=== PATIENT | male | born 2000 | race Caucasian/White ===

== ENCOUNTER 2021-03-05 16:00 | Emergency (ER) | payer MEDICAID ==
[2021-03-05] MEDS ORDERED: MOTRIN 600 MG PO ONE (16:43)
--- NOTE | 2021-03-05 16:49 | ERPHSYRPT ---
- History of Present Illness Time Seen by Provider: 03/05/21 16:30 Source: patient Exam Limitations: no limitations Patient Subjective Stated Complaint: toothache last night to both left and right lower jaw areas. Triage Nursing Assessment: Patient presents to ED with cc of toothache to bilateral back teeth to lower jaw yesterday. Pain is resolved at this time. Patient states that 2 weeks ago, he had a runny nose and cough. However, that resolved 2 days ago. Pt ambulated to room, VSS. Skin PWD. Bilateral back teeth to lower jaw appear broken off and brown. Patient has no complaints at this time, just states he wants checked out d/t to this toothache he had yesterday as he has been dealing with it intermittently x 1 year. Pt answers questions appropriately, is calm and cooperative. Physician History: 20 years old presented in the ER with bilateral molar/premolar area rotten teeth broken off causing off-and-on pain with some swelling of gingiva for almost 1 year but lately causing more pain sharp nature moderate intensity at times which gets better with [id number] pain medications. No difficulty swallowing but causes pain with swallowing. Does not have insurance and have not seen a dentist. Timing/Duration: gradual onset, weeks Severity: moderate ENT Location: dental Prearrival Treatment: no prearrival treatment Associated Symptoms: jaw pain, tooth pain Allergies/Adverse Reactions: No Known Drug Allergies Allergy (Unverified 03/05/21 16:35) Hx Tetanus, Diphtheria Vaccination/Date Given: Yes Hx Influenza Vaccination/Date Given: No Hx Pneumococcal Vaccination/Date Given: No Travel Risk - International Travel Have you traveled outside of the country in past 3 weeks: No - Coronavirus Screening Are you exhibiting any of the following symptoms?: No Close contact with a COVID-19 positive Pt in past 14-21 Days: No - Vaccine Status Have you recieved a Covid-19 vaccination: No - Review of Systems Constitutional: No Symptoms Eyes: No Symptoms Ears, Nose, & Throat: Loose Teeth Respiratory: No Symptoms Cardiac: No Symptoms Abdominal/Gastrointestinal: No Symptoms Musculoskeletal: No Symptoms Skin: No Symptoms Immunological/Allergic: No Symptoms - Past Medical History Pertinent Past Medical History: No Neurological History: No Pertinent History ENT History: No Pertinent History Cardiac History: No Pertinent History Respiratory History: No Pertinent History Endocrine Medical History: No Pertinent History Musculoskeletal History: No Pertinent History GI Medical History: No Pertinent History History: No Pertinent History Psycho-Social History: No Pertinent History Male Reproductive Disorders: No Pertinent History - Past Surgical History Past Surgical History: Yes Neuro Surgical History: No Pertinent History Cardiac: No Pertinent History Respiratory: No Pertinent History Gastrointestinal: No Pertinent History Genitourinary: No Pertinent History Musculoskeletal: No Pertinent History Male Surgical History: No Pertinent History - Social History Smoking Status: Never smoker Exposure to second hand smoke: No Drug Use: none Patient Lives Alone: No (lives with stepdad, mom, sister) - Nursing Vital Signs Nursing Vital Signs: Initial Vital Signs Temperature 36.8 F 03/05/21 16:26 Pulse Rate 78 03/05/21 16:26 Respiratory Rate 16 03/05/21 16:26 O2 Sat by Pulse Oximetry 98 03/05/21 16:26 Pain Scale Pain Intensity 0 - Physical Exam General Appearance: no apparent distress, alert Eye Exam: bilateral eye: normal inspection, PERRL, EOMI Ear Exam: bilateral ear: auricle normal, canal normal, TM normal Nasal Exam: normal inspection Throat Exam: normal, pharynx normal, dental tenderness (Bilateral lower molars with periodontal disease. Mild tenderness of gingiva. Broken molars.) Neck Exam: normal inspection, supple, full range of motion Cardiovascular/Respiratory Exam: normal breath sounds, regular rate/rhythm Neurologic Exam: alert, oriented x 3, cooperative, child's nurse II-XII nml as tested Skin Exam: normal color SpO2 Interpretation: normal SpO2: 98 O2 Delivery: Room Air - Progress Progress: unchanged Progress Note: 03/05/21 16:46 Is given ibuprofen for pain. We'll start him on Augmentin and have him outpatient follow-up with dentist. Counseled pt/family regarding: diagnosis, need for follow-up - Departure Departure Disposition: Home Clinical Impression: Dental infection Condition: Stable Critical Care Time: No Referrals: MICHAEL PASTOR [Primary Care Provider] - Follow Up with PCP/3 days GARCIA CAZARES DDS [NON-STAFF PHY W/O PRIVILEGES] - (Call tomorrow for appointment) Instructions: Tooth Abscess (DC), Tooth Decay, Adult (DC) Additional Instructions: Take Tylenol/ibuprofen as needed for pain. Follow-up with dentist for reevaluation. Return to ER for worsening pain swelling, fever chills etc. Prescriptions: Ibuprofen 600 mg PO Q6HPRN PRN 10 Days #20 tablet PRN Reason: Pain Amoxicillin/Potassium Clav [Augmentin 875-125 Tablet] 875 mg PO BID 7 Days #14 tablet
[2021-03-05] MEDS ORDERED: MOTRIN 600 MG ONE (17:02)
[2021-03-05 17:36] VITALS: BP 128/82; PULSE 72; O2SAT 97
== END 2021-03-05 17:34 | disposition home or self-care (01) ==
LOC: ED 16:00
DX: K08.9 Disorder of teeth and supporting structures, unspecified (principal)
CPT/HCPCS: 99283; A9270-GY